=== PATIENT | female | born 1995 | race Caucasian/White ===

== ENCOUNTER 2016-08-05 00:13 | Emergency (ER) | payer OTHER ==
[2016-08-05 00:20] VITALS: BP 125/100; PULSE 70; RESP 16; TEMP 97.9; O2SAT 97
--- NOTE | 2016-08-05 00:58 | EDPHY ---
H & P Stated Complaint: R foot lac HPI/ROS: HPI CHIEF COMPLAINT: Right foot laceration HISTORY OF PRESENT ILLNESS: This patient very pleasant 20-year-old female no significant medical history does not take any daily medications, presents emergency room with a laceration vertical oriented, in between the 1st and 2nd toe. She sustained this well wearing flip-flops and tripped over something on the ground. She is not exactly sure what happened. Her tetanus shot is up-to- date. Denies any other areas of injury. Past Medical History: No significant medical history Past Surgical History: No significant surgical history Social History: Denies daily use of drugs alcohol tobacco products. Family History: Noncontributory ROS REVIEW OF SYSTEMS: A comprehensive 10 point review of systems is otherwise negative aside from elements mentioned in the history of present illness. Exam Constitutional triage nursing summary reviewed, vital signs reviewed, awake/ alert. Eyes normal conjunctivae and sclera, EOMI, PERRLA. HENT normal inspection, atraumatic, moist mucus membranes, no epistaxis, neck supple/ no meningismus, no raccoon eyes. Respiratory clear to auscultation bilaterally, normal breath sounds, no respiratory distress, no wheezing. Cardiovascular rate normal, regular rhythm, no murmur, no edema, distal pulses normal. Gastrointestinal soft, non-tender, no rebound, no guarding, normal bowel sounds, no distension, no pulsatile mass. Genitourinary no CVA tenderness. Musculoskeletal no midline vertebral tenderness, full range of motion, no calf swelling, no tenderness of extremities, no meningismus, good pulses, neurovascularly intact. Skin right foot: Between the 1st and 2nd digit there is a 3 cm vertically oriented laceration in the webspace. No arterial injury. No bony involvement. No tendon injury. Her foot is neurovascular intact with good range of motion. pink, warm, & dry, no rash. Neurologic awake, alert and oriented x 3, AAOx3, moves all 4 extremities equally, motor intact, sensory intact, CN II-XII intact, normal cerebellar, normal vision, normal speech. Psychiatric normal mood/affect. Heme/Lymph/Immune no lymphadenopathy. Differential Diagnosis: Includes but is not limited to in a particular order, foot laceration, wound care. Medical Decision Making: Plan for this patient will be copiously irrigating clean. Patient will need her laceration repaired sterilely. Her tetanus shot is up-to-date. She will be placed on Keflex prophylactically. She understands have sutures removed in 12-14 days. Keep the wound clean dry and protected. Re-evaluation: Laceration Repair Procedure: Verbal Consent was obtained, Under sterile conditions, The patient had lidocaine with epinephrine used approximately 7ccs to local anesthetize the right foot 3cm vertically oriented Laceration. The wound was copiously irrigated with sterile fluid, the wound was explored for foreign bodies there were none visualized, the wound was explored with a sterile glove to the base. There are no deep structures involved, including no arterial injury. 4 Interrrupted 5.o Prolene Sutures were placed in this patient's laceration. She had good close approximation of the wound edges. She Tolerated this well. Source: Patient - Personal History LMP (Females 10-55): 8-14 Days Ago Current Tetanus/Diphtheria Vaccine: No Current Tetanus Diphtheria and Acellular Pertussis (TDAP): No - Medical/Surgical History Hx Asthma: Yes Hx Chronic Respiratory Disease: No Hx Diabetes: No Hx Cardiac Disease: No Hx Renal Disease: No Hx Cirrhosis: No Hx Alcoholism: No Hx HIV/AIDS: No Hx Splenectomy or Spleen Trauma: No Other PMH: L ankle surgery, asthma - Social History Smoking Status: Never smoked Constitutional: Initial Vital Signs Temperature (C) 36.6 C 08/05/16 00:18 Heart Rate 70 08/05/16 00:18 Respiratory Rate 16 08/05/16 00:18 Blood Pressure 125/100 H 08/05/16 00:18 O2 Sat (%) 97 08/05/16 00:18 O2 Delivery Mode Room Air Allergies/Adverse Reactions: No Known Allergies Allergy (Unverified 08/05/16 00:16) Home Medications: Medication Instructions Recorded Trileptal 300mg (RX) 07/23/15 Cephalexin [Keflex] 500 mg PO Q6H #28 cap 08/05/16 Prozac 20 MG (*) 08/05/16 Departure - Departure Disposition: Home, Routine, Self-Care Clinical Impression: Laceration Condition: Good Instructions: Laceration (ED), Care For Your Stitches (ED) Additional Instructions: 1. Your sutures need to be removed in 12-14 days. 2. Please keep her wound clean, dry, protected. 3. Return emergency room if he develops any worsening symptoms includes signs of infection, redness, drainage, pus, swelling, pain. Referrals: Christiana Mane MD [Primary Care Provider] - As per Instructions Prescriptions: Cephalexin [Keflex] 500 mg PO Q6H #28 cap
[2016-08-05] MEDS ORDERED: CEPHALEXIN 500 MG CAP PO ONE (01:22)
== END 2016-08-05 01:22 | disposition home or self-care (01) ==
PROC: 0HQMXZZ Repair Right Foot Skin, External Approach (ICD-10-PCS; principal; 2016-08-05)
DX: S91.311A Laceration without foreign body, right foot, initial encounter (principal); J45.909 Unspecified asthma, uncomplicated; W18.41XA Slipping, tripping and stumbling without falling due to stepping on object, initial encounter